=== PATIENT | female | born 1985 | race American Indian/Alaskan Native ===

== ENCOUNTER 2018-12-05 22:48 | Emergency (ER) | payer MEDICAID ==
[2018-12-05] MEDS ORDERED: KEPPRA 1,000 MG/NS 0.75% 100ML 1,000 MG/100 ML BAG IV ONE (23:07)
[2018-12-05 23:12] VITALS: BP 141/93
--- NOTE | 2018-12-05 23:30 | Emergency Department Report ---
ED Seizure HPI - General Chief Complaint: Seizure Stated Complaint: SEIZURES Time Seen by Provider: 12/05/18 23:01 Source: EMS Mode of arrival: Stretcher Limitations: No Limitations - History of Present Illness Initial Comments: Ms. Amin is a 33-year-old female with history of seizure disorder since age 15 who presents with seizure. Her children at home called 911. She stated when she awakened from the seizure, paramedics were already at her side. She takes Aptiom 800 mg daily. While last year she took Keppra. However she stated that keppra lamictal nor Dilantin controlled her seizures. She could have seizures up to several times weekly. Due to multiple seizures she has been unable to work for the past 2 weeks. 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 She recently moved from [place] 2 weeks ago. She denies any pain. She denies any current health issues. No other medical concerns. MD Complaint: seizure -: Sudden, This evening Description of Episode: loss of consciousness Witnessed:: Yes Seizure History: known seizure disorder Place: home Possible Precipitating Event: none Associated Symptoms: denies other symptoms Treatments Prior to Arrival: none - Related Data Allergies Allergy/AdvReac Type Severity Reaction Status Date / Time tramadol Allergy Seizure Verified 12/05/18 23:05 ED Review of Systems ROS: Stated complaint: SEIZURES Other details as noted in HPI Comment: All other systems reviewed and negative Constitutional: denies: fever, malaise Respiratory: denies: cough, shortness of breath Gastrointestinal: denies: abdominal pain ED Past Medical Hx - Past Medical History Previous Medical History?: Yes Hx Seizures: Yes - Surgical History Past Surgical History?: Yes Additional Surgical History: x2 - Social History Smoking Status: Current Every Day Smoker Substance Use Type: None ED Physical Exam - General Limitations: No Limitations General appearance: alert, in no apparent distress - Head Head exam: Present: atraumatic, normocephalic - Eye Eye exam: Present: normal appearance - ENT ENT exam: Present: mucous membranes moist - Neck Neck exam: Present: normal inspection, full ROM - Respiratory Respiratory exam: Present: normal lung sounds bilaterally. Absent: respiratory distress, wheezes, rales, rhonchi - Cardiovascular Cardiovascular Exam: Present: regular rate, normal rhythm, normal heart sounds. Absent: systolic murmur, diastolic murmur, rubs, gallop - GI/Abdominal GI/Abdominal exam: Present: soft, normal bowel sounds. Absent: distended, tenderness, guarding, rebound - Extremities Exam Extremities exam: Present: normal inspection - Back Exam Back exam: Present: normal inspection - Neurological Exam Neurological exam: Present: alert, oriented X3, CN II-XII intact, normal gait. Absent: motor sensory deficit - Psychiatric Psychiatric exam: Present: normal affect, normal mood - Skin Skin exam: Present: warm, dry, intact, normal color. Absent: rash ED Course Vital Signs 12/05/18 22:59 Temperature 98.4 F Pulse Rate 70 Respiratory 17 Rate Blood Pressure 141/93 O2 Sat by Pulse 100 Oximetry ED Medical Decision Making - Medical Decision Making Breakthrough seizure with history of seizure disorder. Ms. Amin received IV Keppra load in the ED. I referred her to neurologist. No further treatment indicated. Upon arrival she is awake alert and insightful. Discharged home. Critical care attestation.: If time is entered above; I have spent that time in minutes in the direct care of this critically ill patient, excluding procedure time. ED Disposition Clinical Impression: Breakthrough seizure, Seizure disorder Disposition: DC-01 TO HOME OR SELFCARE Is pt being admited?: No Does the pt Need Aspirin: No Condition: Stable Instructions: Epilepsy (ED), Recurrent Seizures Adult (ED) Referrals: LAURENCE WASHINGTON MD [Staff Physician] - 3-5 Days
[2018-12-06 00:07] LABS: Hematocrit 36.6 % (30.3-42.9); Hemoglobin 12.2 gm/dl (10.1-14.3); Mean Corpuscular HGB Conc 33 % (30-34); Mean Corpuscular Volume 81 fl (79-97); Platelet Count 354 K/mm3 (140-440); Red Blood Count 4.49 M/mm3 (3.65-5.03); Red Cell Distribution Width 14.5 % (13.2-15.2)
[2018-12-06 00:20] LABS: BUN/Creatinine Ratio 18; Blood Urea Nitrogen 11 mg/dL (7-17); Calcium 9.2 mg/dL (8.4-10.2); Hemolysis Index 48
== END 2018-12-06 00:27 | disposition home or self-care (01) ==
LOC: ED 22:48
DX: G40.909 Epilepsy, unspecified, not intractable, without status epilepticus (principal); F17.200 Nicotine dependence, unspecified, uncomplicated; Z88.6 Allergy status to analgesic agent
CPT/HCPCS: 36415; 80048; 82962; 84703; 85027; 96365; 99284; J1953

== ENCOUNTER 2019-01-19 22:28 | Emergency (ER) | payer MEDICAID ==
--- NOTE | 2019-01-19 22:53 | Emergency Department Report ---
ED Seizure HPI - General Chief Complaint: Seizure Stated Complaint: SEIZURE Time Seen by Provider: 01/19/19 22:49 Source: patient, EMS Mode of arrival: Stretcher Limitations: No Limitations - History of Present Illness Initial Comments: Patient is a 33 years old female with history of seizures since she was 16 years old. Patient [facility] emergency room via EMS complaining of 2 episodes of seizure this afternoon. Patient stated that she is taking Vimpat 2 tablets twice a day. Patient denied any trauma or injury. Patient denied any recent fever or chills. MD Complaint: seizure -: This afternoon Description of Episode: loss of consciousness, tonic-clonic movement, bladder incontinence Trauma: No Seizure History: known seizure disorder Place: home Possible Precipitating Event: none Associated Symptoms: denies other symptoms - Related Data Previous Rx's Medication Instructions Recorded Last Taken Type Ciprofloxacin HCl [Ciprofloxacin 500 mg PO Q12HR #14 tab 01/20/19 Unknown Rx TAB] Allergies Allergy/AdvReac Type Severity Reaction Status Date / Time tramadol Allergy Seizure Verified 12/05/18 23:05 ED Review of Systems ROS: Stated complaint: SEIZURE Other details as noted in HPI Comment: All other systems reviewed and negative Constitutional: denies: chills, fever Respiratory: denies: cough Cardiovascular: denies: chest pain, palpitations Gastrointestinal: denies: abdominal pain, nausea, vomiting Neurological: denies: headache, weakness, numbness, paresthesias, confusion ED Past Medical Hx - Past Medical History Hx Seizures: Yes - Surgical History Additional Surgical History: x2 - Social History Smoking Status: Never Smoker Substance Use Type: None - Medications Home Medications: Home Medications Medication Instructions Recorded Confirmed Last Taken Type Ciprofloxacin HCl [Ciprofloxacin 500 mg PO Q12HR #14 tab 01/20/19 Unknown Rx TAB] ED Physical Exam - General Limitations: No Limitations General appearance: alert, in no apparent distress - Head Head exam: Present: atraumatic, normocephalic, normal inspection - Eye Eye exam: Present: normal appearance - ENT ENT exam: Present: normal exam, normal orophraynx, mucous membranes moist - Neck Neck exam: Present: normal inspection, full ROM. Absent: tenderness, meningismus - Respiratory Respiratory exam: Present: normal lung sounds bilaterally - Cardiovascular Cardiovascular Exam: Present: regular rate, normal rhythm, normal heart sounds - GI/Abdominal GI/Abdominal exam: Present: soft, normal bowel sounds. Absent: distended, tenderness, guarding, rebound, rigid - Extremities Exam Extremities exam: Present: normal inspection - Back Exam Back exam: Present: normal inspection - Neurological Exam Neurological exam: Present: alert, oriented X3, CN II-XII intact - Skin Skin exam: Present: warm, intact ED Course Vital Signs 01/19/19 01/19/19 01/20/19 22:42 23:00 00:00 Temperature 97.8 F Pulse Rate 95 H 93 H 71 Respiratory 19 12 19 Rate Blood Pressure 111/68 99/59 Blood Pressure 111/78 [Left] O2 Sat by Pulse 100 100 99 Oximetry 01/20/19 01/20/19 01/20/19 01:00 03:07 03:15 Temperature 98 F Pulse Rate 63 88 Respiratory 20 16 16 Rate Blood Pressure 102/58 Blood Pressure 102/66 [Left] O2 Sat by Pulse 100 98 Oximetry ED Medical Decision Making - Lab Data Result diagrams: 01/19/19 22:56 01/19/19 22:56 - Medical Decision Making Patient is a 33 years old female with history of seizures since she was 16 years old. Patient [facility] emergency room via EMS complaining of 2 episodes of seizure this afternoon. Patient stated that she is taking Vimpat 2 tablets twice a day. Patient denied any trauma or injury. Patient denied any recent fever or chills. No seizure observed in the ER. Labs reviewed and is unremarkable except for UTI, which patient be started on ciprofloxacin. Patient refused Keppra medication and also stated that Dilantin does not work for. Patient advised to follow up with her neurologist in the next 2-3 days and to return to the ER if she have any more symptoms. Critical care attestation.: If time is entered above; I have spent that time in minutes in the direct care of this critically ill patient, excluding procedure time. ED Disposition Clinical Impression: Seizure, UTI (urinary tract infection) Disposition: - TO HOME OR SELFCARE Is pt being admited?: No Condition: Stable Instructions: Urinary Tract Infection in Women (ED), Recurrent Seizures Adult (ED) Prescriptions: Ciprofloxacin HCl [Ciprofloxacin TAB] 500 mg PO Q12HR #14 tab Referrals: WILLIAN DAVIDSON MD [Primary Care Provider] - 3-5 Days
[2019-01-19] MEDS ORDERED: KEPPRA 1,000 MG/NS 0.75% 100ML 1,000 MG/100 ML BAG IV ONE (23:14)
[2019-01-19 23:21] LABS: Basophils # (Auto) 0.1 K/mm3 (0.0-0.1); Basophils % (Auto) 0.7 % (0.0-1.8); Eosinophils # (Auto) 0.2 K/mm3 (0.0-0.4); Eosinophils % (Auto) 2.8 % (0.0-4.3); Hematocrit 37.7 % (30.3-42.9); Hemoglobin 12.3 gm/dl (10.1-14.3); Lymphocytes # (Auto) 0.8 K/mm3 (1.2-5.4); Mean Corpuscular HGB Conc 33 % (30-34); Mean Corpuscular Volume 80 fl (79-97); Monocytes # (Auto) 0.4 K/mm3 (0.0-0.8); Monocytes % (Auto) 4.6 % (0.0-7.3); Platelet Count 412 K/mm3 (140-440); Red Blood Count 4.74 M/mm3 (3.65-5.03); Red Cell Distribution Width 15.7 % (13.2-15.2)
[2019-01-19 23:29] LABS: Albumin 4.3 g/dL (3.9-5); BUN/Creatinine Ratio 11; Blood Urea Nitrogen 12 mg/dL (7-17); Calcium 9.4 mg/dL (8.4-10.2); Hemolysis Index 3
[2019-01-19] MEDS ORDERED: TYLENOL PO ONE (23:29)
[2019-01-19] MEDS ORDERED: TYLENOL ONE (23:30)
[2019-01-19 23:33] LABS: Alanine Aminotransferase < 5 units/L (7-56); Bilirubin,Direct < 0.2 mg/dL (0-0.2)
[2019-01-20 02:22] LABS: Bacteria,Urine 2+ /HPF (Negative); Bilirubin,Urine NEG (Negative); Blood,Urine SM (Negative); Color,Urine Yellow (Yellow); Mucus,Urine FEW /HPF; Urobilinogen,Urine < 2.0 mg/dL (<2.0)
[2019-01-20 02:27] LABS: Amphetamine Screen,Urine PRESUMPTIVE NEGATIVE; Benzodiazepines Screen,Urine PRESUMPTIVE NEGATIVE; Cannabinoid Screen,Urine PRESUMPTIVE NEGATIVE; Cocaine Screen,Urine PRESUMPTIVE NEGATIVE; Methadone Screen,Urine PRESUMPTIVE NEGATIVE; Opiate Screen,Urine PRESUMPTIVE NEGATIVE
[2019-01-20 03:16] VITALS: BP 102/66
[2019-01-20] MEDS ORDERED: KEPPRA 1,000 MG/NS 0.75% 100ML 1,000 MG/100 ML BAG IV ONE (12:22)
== END 2019-01-20 03:15 | disposition home or self-care (01) ==
LOC: ED 22:28
DX: R56.9 Unspecified convulsions (principal); N39.0 Urinary tract infection, site not specified; Z88.6 Allergy status to analgesic agent; Z79.899 Other long term (current) drug therapy
CPT/HCPCS: 36415; 80048; 80076; 80307; 81001; 84703; 85025